=== PATIENT | female | born 1995 | race Caucasian/White ===

== ENCOUNTER 2017-04-24 12:05 | Observation (INO) | payer OTHER ==
[~2017-04-24] VITALS: Ht 167.6 cm; Wt 56.4 kg
[~2017-04-24 12:05] MED LIST: PRED10TA PO
[2017-04-24] MEDS ORDERED: DEXAMETHASONE SOD INJ 4 MG/ML VIAL IV STA (12:20)
[2017-04-24] MEDS ORDERED: DiphenhydrAMINE HCL 50 MG/ML VIAL IV STA (12:20)
[2017-04-24] MEDS ORDERED: CEFTRIAXONE SOD INJ 1 GM ADDVIAL IV STA (12:20)
[2017-04-24] MEDS ORDERED: ONDANSETRON INJ 2 MG/ML 2 ML VIAL IV STA (12:20)
[2017-04-24] MEDS ORDERED: MoRPHine SULFATE 4 MG/ML 1 ML CARP\\VIAL IV PRN ×2 (12:30→16:15)
--- NOTE | 2017-04-24 12:30 | EMERGENCY ROOM VISIT NOTE ---
History First contact with patient: 12:12 Chief Complaint: HEADACHE Stated Complaint: CP, NECK PAIN, SEVERE HEADACHE History of Present Illness The patient is a 21 year old female who presents to the Emergency Room with complaints of a severe headache. The patient states that last week, 6 days ago , she woke up with chest pain. The pain was worse to breathe and to move. 2 days ago, she went to see [facility] and was diagnosed with costochondritis. She is on prednisone. She states the chest pain has improved but for 2 days now, she has had a severe headache. She describes it as diffuse , bilateral and severe. It is the worst headache she has ever experienced. Even her eyes hurt and moving her eyes worsens or headache. Position change worsens her headache. She also has some neck pain and has some aching. She has no fever. No vomiting or nausea. No diarrhea. No urinary complaints. She is not concerned for . She has not been around anyone ill with similar symptoms. Review of Systems ROS: Please see HPI. At least 10 systems in total were reviewed and otherwise negative. Past Medical/Surgical History Medical Problems: (1) Viral meningitis No history of lung, heart or liver disease. She has no history of migraines. Family History Noncontributory Social History Smoking Status: Never Smoker Marital Status: single Occupation Status: student Current/Historical Medications Scheduled Prednisone (Prednisone), 0 PO UD Physical Exam Vital Signs Date Time Temp Pulse Resp B/P (MAP) Pulse Ox O2 Delivery O2 Flow Rate FiO2 04/24/17 14:59 80 16 111/77 100 Room Air 04/24/17 13:19 85 20 119/77 100 Room Air 04/24/17 12:08 36.9 82 20 123/84 99 Room Air Physical Exam GENERAL: Patient is in no acute distress. HEENT: No acute trauma, normocephalic atraumatic, mucous membranes moist, no nasal congestion, no scleral icterus. No throat erythema or exudate. NECK: No stridor, no adenopathy, no true meningismus but the neck was sore with flexion, trachea is midline. Tender to the right trapezius and right neck musculature. LUNGS: Clear to auscultation bilaterally, no wheeze, no rhonchi, breath sounds equal. HEART: Without murmurs gallops or rubs, regular rate and rhythm. ABDOMEN: Soft, nontender, bowel sounds positive, no hernias, no peritonitis. EXTREMITIES: No cyanosis or edema, full range of motion of all the joints without pain or difficulty, no signs for acute trauma. NEUROLOGIC: Oriented x 3, no acute motor or sensory deficits, no focal weakness. SKIN: No rash, no jaundice, no diaphoresis. Medical Decision & Procedures Laboratory Results 04/24/17 12:30 Red Blood Count 4.56, Mean Corpuscular Volume 88.2, Mean Corpuscular Hemoglobin 29.8, Mean Corpuscular Hemoglobin Concent 33.8, Mean Platelet Volume 9.3, Neutrophils (%) (Auto) 54.0, Lymphocytes (%) (Auto) 36.9, Monocytes (%) (Auto) 8.6, Eosinophils (%) (Auto) 0.1, Basophils (%) (Auto) 0.1, Neutrophils # (Auto) 5.49, Lymphocytes # (Auto) 3.75, Monocytes # (Auto) 0.87, Eosinophils # (Auto) 0.01, Basophils # (Auto) 0.01 04/24/17 12:30 Test 04/24/17 12:30 04/24/17 12:50 04/24/17 13:40 White Blood Count 10.16 K/uL (4.8-10.8) Red Blood Count 4.56 M/uL (4.2-5.4) Hemoglobin 13.6 g/dL (12.0-16.0) Hematocrit 40.2 % (37-47) Mean Corpuscular Volume 88.2 fL (80-100) Mean Corpuscular Hemoglobin 29.8 pg (25-34) Mean Corpuscular Hemoglobin Concent 33.8 g/dl (32-36) Platelet Count 277 K/uL (130-400) Mean Platelet Volume 9.3 fL (7.4-10.4) Neutrophils (%) (Auto) 54.0 % Lymphocytes (%) (Auto) 36.9 % Monocytes (%) (Auto) 8.6 % Eosinophils (%) (Auto) 0.1 % Basophils (%) (Auto) 0.1 % Neutrophils # (Auto) 5.49 K/uL (1.4-6.5) Lymphocytes # (Auto) 3.75 K/uL (1.2-3.4) Monocytes # (Auto) 0.87 K/uL (0.11-0.59) Eosinophils # (Auto) 0.01 K/uL (0-0.5) Basophils # (Auto) 0.01 K/uL (0-0.2) RDW Standard Deviation 40.5 fL (36.4-46.3) RDW Coefficient of Variation 12.7 % (11.5-14.5) Immature Granulocyte % (Auto) 0.3 % Immature Granulocyte # (Auto) 0.03 K/uL (0.00-0.02) Anion Gap 8.0 mmol/L (3-11) Est Creatinine Clear Calc Drug Dose 88.0 ml/min Estimated GFR () 104.6 Estimated GFR (Non- 90.3 BUN/Creatinine Ratio 12.6 (10-20) Calcium Level 9.3 mg/dl (8.5-10.1) Total Bilirubin 0.3 mg/dl (0.2-1) Aspartate Amino Transf (AST/SGOT) 20 U/L (15-37) Alanine Aminotransferase (ALT/SGPT) 25 U/L (12-78) Alkaline Phosphatase 88 U/L (45-117) Troponin I < 0.015 ng/ml (0-0.045) Total Protein 8.0 gm/dl (6.4-8.2) Albumin 3.7 gm/dl (3.4-5.0) Globulin 4.3 gm/dl (2.5-4.0) Albumin/Globulin Ratio 0.9 (0.9-2) Human Chorionic Gonadotropin, Qual NEG (NEG) Lyme Disease IgG Antibody NEG (NEG) Lyme Disease IgM Antibody NEG (NEG) Urine Color YELLOW Urine Appearance CLEAR (CLEAR) Urine pH 7.5 (4.5-7.5) Urine Specific [place] 1.014 (1.000-1.030) Urine Protein NEG (NEG) Urine Glucose (UA) NEG (NEG) Urine Ketones NEG (NEG) Urine Occult Blood 2+ (NEG) Urine Nitrite NEG (NEG) Urine Bilirubin NEG (NEG) Urine Urobilinogen NEG (NEG) Urine Leukocyte Esterase NEG (NEG) Urine WBC (Auto) 1-5 /hpf (0-5) Urine RBC (Auto) 0-4 /hpf (0-4) Urine Hyaline Casts (Auto) 1-5 /lpf (0-5) Urine Epithelial Cells (Auto) >30 /lpf (0-5) Urine Bacteria (Auto) NEG (NEG) CSF Color COLORLESS CSF Appearance CLEAR CSF WBC 57 /uL (0-5) CSF RBC 33 /uL (0) CSF Polynuclear WBCs 81.0 % CSF Mononuclear WBCs 19.0 % CSF Xanthrochromic NO XANTHOCHROMIA CSF Cell Count Tube # 1 CSF Polynuclear WBCs (%) % CSF Chemistry Tube # 2 CSF Glucose 58 mg/dl (40-70) CSF Total Protein 34.6 mg/dl (15.0-45.0) Laboratory results reviewed by me. Medications Administered Medications (Trade) Dose Ordered Sig/Pennie Route Start Time Stop Time Status Last Admin Dose Admin Ondansetron HCl (Zofran Inj) 4 mg NOW STAT IV 04/24/17 12:20 04/24/17 12:24 DC 04/24/17 12:47 4 MG Morphine Sulfate (MoRPHine SULFATE INJ) 4 mg Q15M PRN IV 04/24/17 12:30 04/24/17 18:15 DC 04/24/17 12:48 4 MG Diphenhydramine HCl (Benadryl Inj) 25 mg NOW STAT IV 04/24/17 12:20 04/24/17 12:24 DC 04/24/17 12:49 25 MG Dexamethasone Sodium Phosphate (Decadron Inj) 10 mg NOW STAT IV 04/24/17 12:20 04/24/17 12:24 DC 04/24/17 12:46 10 MG Ceftriaxone Sodium (Rocephin Inj) 2 gm NOW STAT IV 04/24/17 12:20 04/24/17 12:24 DC 04/24/17 12:49 2 GM Sodium Chloride 500 ml @ 999 mls/hr Q31M STAT IV 04/24/17 13:45 04/24/17 14:15 DC 04/24/17 13:54 999 MLS/HR Acetaminophen (Tylenol Tab) 650 mg Q4H PRN PO 04/24/17 16:00 05/24/17 15:59 04/24/17 16:26 650 MG Procedure Lumbar Puncture Indication: Headache, neck pain. Verbal consent was obtained after the risks and benefits were explained, including but not limited to headache, bleeding/clotting, scarring, infection, pain, and bone/joint/nerve damage. At this time, the risks of the procedure are less than the risks of NOT performing the procedure. A time out was taken and the correct patient and site identified. The patient was placed in the seated position and the back was prepped with betadine and draped in the standard fashion. The appropriate intervertebral space was identified, anesthetized locally with 1% lidocaine without epinephrine, and the spinal needle was inserted through the skin with the bevel parallel to the dural fibers. The needle was carefully advanced into the lumbar cistern and 4 tubes of clear CSF was obtained. The stylet was replaced and the needle was removed. A bandaid was placed and the patient was placed in the supine position. The patient tolerated the procedure well and there were no complications. ED Course 1205: The patient was evaluated in room C10. A complete history and physical exam was performed. 1220: Ordered Rocephin Inj 2 gm IV, Decadron Inj 10 mg IV, Benadryl Inj 25 mg IV , Zofran Inj 4 mg IV. 1230: Ordered Morphine Sulfate 4 mg IV. 1326: I conducted the lumbar puncture. See the procedure note for details. 1520: Upon reexamination the patient is resting comfortably. I discussed results and treatment plan with the patient. She verbalizes agreement and understanding. The patient will be evaluated for further management. Medical Decision Differential diagnosis includes viral or bacterial meningitis, intracranial bleeding, generalized viral illness, migraine headache, dehydration, electrolyte imbalance, pneumonia and UTI. There is no leukocytosis or concerning anemia. No significant electrolyte abnormality, kidney failure or hepatitis. testing is negative. Urinalysis does not show evidence for infection. Brain CT shows no acute bleed or mass effect. Chest film does not show pneumonia, mediastinal widening or pneumothorax. Lyme disease testing was negative. On exam, the patient was not febrile. She has some neck soreness with testing but no true meningismus. Patient received IV saline, IV Benadryl, IV Decadron, IV morphine, IV Zofran and IV ceftriaxone. The ceftriaxone was given for antibiotic coverage. Because of concerns for meningitis, a lumbar puncture was performed. There were no complications--the CSF fluid does suggest meningitis, likely a viral meningitis. Given the findings, a hospital stay was felt warranted. I spoke to the patient and case management. I talked to the patient's family. The on-call hospitalist was consulted. The patient is currently resting comfortably. Medication Reconcilliation Current Medication List: was personally reviewed by fl Blood Pressure Screening Patient's blood pressure: Normal blood pressure Blood pressure disposition: Did not require urgent referral Consults Time Called: 1514 Consulting Physician: Rae OMALLEY Returned Call: 1520 Discussed the patient's case. The patient will be evaluated for further management. Impression Primary Impression: Meningitis Departure Information Dispostion Being Evaluated By Hospitalist Referrals No Doctor, Assigned (PCP) Patient Instructions [facility]
[2017-04-24 12:48] LABS: BASO % 0.1 %; BASO ABS # 0.01 K/uL (0-0.2); COMPLETE YES; EOS % 0.1 %; HEMATOCRIT 40.2 % (37-47); IG% 0.3 %; LYMPH % 36.9 %; LYMPH ABS # 3.75 K/uL (1.2-3.4); MEAN CELL VOLUME 88.2 fL (80-100); MEAN CORPUSCULAR HEMOGLOBIN 29.8 pg (25-34); MEAN CORPUSCULAR HGB CONC 33.8 g/dl (32-36); MEAN PLATELET VOLUME 9.3 fL (7.4-10.4); MONO % 8.6 %; PLATELET COUNT 277 K/uL (130-400); RED BLOOD COUNT 4.56 M/uL (4.2-5.4); WHITE BLOOD COUNT 10.16 K/uL (4.8-10.8)
[2017-04-24 12:55] LABS: BUN/CREATININE RATIO 12.6 (10-20); CALCIUM 9.3 mg/dl (8.5-10.1); CREATININE 0.92 mg/dl (0.60-1.20); POTASSIUM 3.1 mmol/L (3.5-5.1)
[2017-04-24 12:58] LABS: ALB/GLOB RATIO 0.9 (0.9-2)
[2017-04-24 13:05] LABS: PREG INTERNAL NEGATIVE QC NEG CLEAR BACKGROUND; PREG INTERNAL POSITIVE QC POS CONTROL LINE
[2017-04-24 13:07] LABS: URINE APPEARANCE CLEAR (CLEAR); URINE BILIRUBIN NEG (NEG); URINE COLOR YELLOW; URINE EPITHELIAL CELL AUTO >30 /lpf (0-5); URINE NITRITE NEG (NEG); URINE PH 7.5 (4.5-7.5); URINE SPECIFIC GRAVITY 1.014 (1.000-1.030); UROBILINOGEN NEG (NEG); ZZUR CULT IF INDIC CLEAN CATCH NO
[2017-04-24 13:10] LABS: MANUAL MICROSCOPIC REQUIRED? NO; REVIEW REQ? NO
--- NOTE | 2017-04-24 13:14 | DIAGNOSTIC IMAGING REPORT ---
HEAD CT NONCONTRAST CT DOSE: 537.48 mGy.cm HISTORY: Headache. Evaluate for hemorrhage or pathology TECHNIQUE: Multiaxial CT images of the head were performed without the use of intravenous contrast. Automated exposure control was utilized for this study. A dose lowering technique was utilized adhering to the principles of ALARA. Comparison: None. Findings: Partially visualized small retention cyst within the left maxillary sinus. Remaining paranasal sinuses and mastoid air cells are clear. The calvarium and skull base are intact. The ventricles and sulci are within normal limits. There is no mass, hematoma, midline shift, or acute infarct. Impression: No acute intracranial abnormality. Electronically signed by: Lucho Longoria M.D. 04/24/2017 1:12 PM Dictated Date/Time: 04/24/2017 1:09 PM
[2017-04-24] MEDS ORDERED: XYLOCAINE 1%/SOD BICARB 20 ML VIAL INFIL ONE (13:18)
--- NOTE | 2017-04-24 13:31 | DIAGNOSTIC IMAGING REPORT ---
CHEST ONE VIEW PORTABLE CLINICAL HISTORY: Chest pain. COMPARISON STUDY: No previous studies for comparison. FINDINGS: Lung volumes are normal. No pneumothorax or pleural effusion is present. Pulmonary vascularity is normal. Cardiomediastinal silhouette is normal. IMPRESSION: No acute cardiopulmonary findings. Electronically signed by: Kaushal Galvan M.D. 04/24/2017 1:29 PM Dictated Date/Time: 04/24/2017 1:29 PM
[2017-04-24] MEDS ORDERED: SODIUM CHLORIDE 0.9% 500ML 500 ML IV STA (13:45)
[2017-04-24 13:50] LABS: LYME DISEASE AB IGG NEG (NEG); LYME DISEASE AB IGM NEG (NEG)
[2017-04-24 14:15] LABS: CSF CHEMISTRY TUBE # 2
[2017-04-24 14:30] LABS: CSF TOTAL PROTEIN 34.6 mg/dl (15.0-45.0)
[2017-04-24 15:06] LABS: CSF APPEARANCE CLEAR; CSF COLOR COLORLESS; CSF XANTHOCHROMIC NO XANTHOCHROMIA
[2017-04-24 15:07] LABS: CSF APPEARANCE CLEAR; CSF COLOR COLORLESS; CSF XANTHOCHROMIC NO XANTHOCHROMIA
--- NOTE | 2017-04-24 15:40 | History and Physical ---
History & Physical Date & Time of Service: Apr 24, 2017 at 15:34 Chief Complaint: Cp, Neck Pain, Severe Headache Primary Care Physician: No Doctor, Assigned History of Present Illness Ms. Nelson presents for headache which she says is the worst in her life. She had chest pain a week ago which was diagnosed as costochondritis at [facility] and for which she was given prednisone and has improved. She then developed a headache yesterday, tylenol helped a little but became unbearable by night. She was having tunnel vision when going from laying to standing. The headache was throbbing in nature around her eyes. No history of migraine or headaches. Neck and upper back pain started yesterday along with the headache. No fever, some chills and body aches, no nausea or vomiting, no upper respiratory symptoms. She has been short of breath but mostly due to the pain in her chest. Right now her headache is better but not her neck pain and it feels more painful laying down on it. She has a sharp shooting pain when trying to get chin to chest. She has not been doing any new exercises or strained her neck in the past few days. She has no other significant medical history. Social History Smoking Status: Never Smoker Smokeless Tobacco Use: No Alcohol Use: socially Marital Status: single Housing status: lives with friends Occupational Status: student Allergies Coded Allergies: No Known Allergies (Unverified , 04/24/17) Home Medications Scheduled Prednisone (Prednisone), 0 PO UD Review of Systems Constitutional: + chills, No fever Respiratory: + shortness of breath, No cough Cardiovascular: + chest pain Abdomen: No pain, No nausea, No vomiting Physical Exam Vital Signs Date Time Temp Pulse Resp B/P (MAP) Pulse Ox O2 Delivery O2 Flow Rate FiO2 04/24/17 14:59 80 16 111/77 100 Room Air 04/24/17 13:19 85 20 119/77 100 Room Air 04/24/17 12:08 36.9 82 20 123/84 99 Room Air General: no distress Eyes: normal inspection, PERLL Respiratory: chest non tender, clear to auscultation, normal breath sounds, no respiratory distress, no accessory muscle use Cardiac: regular rate and rhythm, no rub or gallop, no murmur, no edema, no jvd GI/: active bowel sounds, no abd pain or tenderness, soft, non distended Extremities: normal range of motion, normal strength, non tender, unable to go through full range of motion chin to chest but can put chin to shoulders bilaterally Neuro/Psych: alert and oriented x 3, normal mood and affect Skin: normal color, dry Diagnostics Laboratory Results Results Past 24 Hours Test 04/24/17 12:30 04/24/17 12:50 04/24/17 13:40 Range/Units White Blood Count 10.16 4.8-10.8 K/uL Red Blood Count 4.56 4.2-5.4 M/uL Hemoglobin 13.6 12.0-16.0 g/dL Hematocrit 40.2 37-47 % Mean Corpuscular Volume 88.2 80-100 fL Mean Corpuscular Hemoglobin 29.8 25-34 pg Mean Corpuscular Hemoglobin Concent 33.8 32-36 g/dl Platelet Count 277 130-400 K/uL Mean Platelet Volume 9.3 7.4-10.4 fL Neutrophils (%) (Auto) 54.0 % Lymphocytes (%) (Auto) 36.9 % Monocytes (%) (Auto) 8.6 % Eosinophils (%) (Auto) 0.1 % Basophils (%) (Auto) 0.1 % Neutrophils # (Auto) 5.49 1.4-6.5 K/uL Lymphocytes # (Auto) 3.75 1.2-3.4 K/uL Monocytes # (Auto) 0.87 0.11-0.59 K/uL Eosinophils # (Auto) 0.01 0-0.5 K/uL Basophils # (Auto) 0.01 0-0.2 K/uL RDW Standard Deviation 40.5 36.4-46.3 fL RDW Coefficient of Variation 12.7 11.5-14.5 % Immature Granulocyte % (Auto) 0.3 % Immature Granulocyte # (Auto) 0.03 0.00-0.02 K/uL Sodium Level 141 136-145 mmol/L Potassium Level 3.1 3.5-5.1 mmol/L Chloride Level 105 98-107 mmol/L Carbon Dioxide Level 28 21-32 mmol/L Anion Gap 8.0 3-11 mmol/L Blood Urea Nitrogen 12 7-18 mg/dl Creatinine 0.92 0.60-1.20 mg/dl Est Creatinine Clear Calc Drug Dose 88.0 ml/min Estimated GFR () 104.6 Estimated GFR (Non- 90.3 BUN/Creatinine Ratio 12.6 10-20 Random Glucose 87 70-99 mg/dl Calcium Level 9.3 8.5-10.1 mg/dl Total Bilirubin 0.3 0.2-1 mg/dl Aspartate Amino Transf (AST/SGOT) 20 15-37 U/L Alanine Aminotransferase (ALT/SGPT) 25 12-78 U/L Alkaline Phosphatase 88 45-117 U/L Troponin I < 0.015 0-0.045 ng/ml Total Protein 8.0 6.4-8.2 gm/dl Albumin 3.7 3.4-5.0 gm/dl Globulin 4.3 2.5-4.0 gm/dl Albumin/Globulin Ratio 0.9 0.9-2 Human Chorionic Gonadotropin, Qual NEG NEG Lyme Disease IgG Antibody NEG NEG Lyme Disease IgM Antibody NEG NEG Urine Color YELLOW Urine Appearance CLEAR CLEAR Urine pH 7.5 4.5-7.5 Urine Specific [place] 1.014 1.000-1.030 Urine Protein NEG NEG Urine Glucose (UA) NEG NEG Urine Ketones NEG NEG Urine Occult Blood 2+ NEG Urine Nitrite NEG NEG Urine Bilirubin NEG NEG Urine Urobilinogen NEG NEG Urine Leukocyte Esterase NEG NEG Urine WBC (Auto) 1-5 0-5 /hpf Urine RBC (Auto) 0-4 0-4 /hpf Urine Hyaline Casts (Auto) 1-5 0-5 /lpf Urine Epithelial Cells (Auto) >30 0-5 /lpf Urine Bacteria (Auto) NEG NEG CSF Color COLORLESS CSF Appearance CLEAR CSF WBC 57 0-5 /uL CSF RBC 33 0 /uL CSF Xanthrochromic NO XANTHOCHROMIA CSF Cell Count Tube # 1 CSF Chemistry Tube # 2 CSF Glucose 58 40-70 mg/dl CSF Total Protein 34.6 15.0-45.0 mg/dl Microbiology Results 04/24/17 Gram Stain - Final, Resulted 04/24/17 CSF Culture, Resulted Pending Impression Assessment and Plan Ms. Nelson is a 21 year old woman here for likely viral meningitis. Her presentation is not consistent with bacterial and her LP showed a small white count with no bacteria. R/o viral meningitis - admit obs med/surg - keep on droplet precautions until 24 hours of antibiotics administered - ceftriaxone, vanco iv, decadron, toradol, morphine - IVF Hypokalemia - NSS 20K - po replacement Full code DVT prophylaxis - scds OFFICE ASSISTANT Physician Supervision Note: I interviewed and examined the patient. Discussed with Rae Cerrato OFFICE ASSISTANT and agree with findings and plan as documented in the note. Any exceptions or clarifications are listed here: None Patient presents the worst headache of her life, evaluation showed a negative CT a lumbar puncture was performed with some white blood cells however normal glucose no significant red cells will bring patient what facility for evaluation of possible meningitis although clinically the impression is that this is viral meningitis. She however does not have any preceding prodromal upper respiratory infections and this may well just be an atypical headache for this patient Evaluation finds her awake alert and oriented she is with her mother the bedside she is only minimal base of her neck pain more on the right although examination on the left shows morbid noddy space she can bend her chin to her chest she has no meningeal signs with straight leg raising the remainder of HEENT exam is unremarkable including negative throat normal TMs. The patient be kept overnight for evaluation of possible meningitis will begin treatment for bacterial meningitis although clinically this likely may favor an alternative diagnosis. Documented By: Pilo Conway Advanced Directives Existing Advance Directive: No Existing Living Will: No Existing Power of Ships Or Barges Loader: No Existing Health Care Proxy: No Resuscitation Status FULL RESUSCITATION VTE Prophylaxis VTE Risk Assessment Done? Y/N: Yes Risk Level: Low Given or contraindicated: SCD's Social Service Consult None Apply
[2017-04-24] MEDS ORDERED: ONDANSETRON INJ 2 MG/ML 2 ML VIAL IV PRN (16:00)
[2017-04-24] MEDS ORDERED: ACETAMINOPHEN 325 MG TAB PO PRN (16:00)
[2017-04-24] MEDS ORDERED: MoRPHine SULFATE 2 MG/ML CARP IV PRN (16:15)
[2017-04-24] MEDS ORDERED: KETOROLAC TROMETHAMINE 30 MG/ML VIAL IV PRN (16:15)
[2017-04-24] MEDS ORDERED: POTASSIUM CHLORIDE 10 MEQ TABCR PO ONE (16:15)
[2017-04-24] MEDS ORDERED: VANCOMYCIN INJ 1,500 MG in SODIUM CHLORIDE 0.9% 500ML 500 ML IV ONE (16:30)
[2017-04-24] MEDS ORDERED: VANCOMYCIN CONSULT ACTIVE PRN (16:45)
[2017-04-24] MEDS ORDERED: IV FLUIDS COMPLETED PRN (16:45)
[2017-04-24 17:56] VITALS: BP 119/72; PULSE 80; TEMP 37.5; O2SAT 99
[2017-04-24] MEDS ORDERED: MAGNESIUM SULFATE 1GM / D5W 1 GM in PREMIXED IN D5W 100 ML IV ONE (18:00)
[2017-04-24] MEDS: NSS + 20MEQ KCL 1000ML 1,000 ML IV SCH ×2 (18:24→23:42)
[2017-04-24] MEDS: DEXAMETHASONE 4 MG TAB PO SCH ×2 (18:50→23:42)
[2017-04-24 18:57] VITALS: BP 119/72; PULSE 80; TEMP 37.5; O2SAT 99; Ht 167.6 cm; Wt 56.4 kg
--- NOTE | 2017-04-24 19:33 | Pharmacy Progress Note ---
Pharmacy Antibiotic Consult Date of Service: Apr 24, 2017. Pharmacy Dosing Scope Pharmacy is consulted to initiate vancomycin IV dosing therapy, order appropriate labs and adjust drug dose/frequency. Subjective The patient is a 21 year old female admitted on Apr 24, 2017 at 16:09. Objective Height (Feet): 5 Height (Inches): 6.00 Weight (Kilograms): 56.400 Lab Results (24hrs): Test 04/24/17 12:30 04/24/17 12:50 04/24/17 13:40 White Blood Count 10.16 K/uL (4.8-10.8) Red Blood Count 4.56 M/uL (4.2-5.4) Hemoglobin 13.6 g/dL (12.0-16.0) Hematocrit 40.2 % (37-47) Mean Corpuscular Volume 88.2 fL (80-100) Mean Corpuscular Hemoglobin 29.8 pg (25-34) Mean Corpuscular Hemoglobin Concent 33.8 g/dl (32-36) Platelet Count 277 K/uL (130-400) Mean Platelet Volume 9.3 fL (7.4-10.4) Neutrophils (%) (Auto) 54.0 % Lymphocytes (%) (Auto) 36.9 % Monocytes (%) (Auto) 8.6 % Eosinophils (%) (Auto) 0.1 % Basophils (%) (Auto) 0.1 % Neutrophils # (Auto) 5.49 K/uL (1.4-6.5) Lymphocytes # (Auto) 3.75 K/uL (1.2-3.4) Monocytes # (Auto) 0.87 K/uL (0.11-0.59) Eosinophils # (Auto) 0.01 K/uL (0-0.5) Basophils # (Auto) 0.01 K/uL (0-0.2) RDW Standard Deviation 40.5 fL (36.4-46.3) RDW Coefficient of Variation 12.7 % (11.5-14.5) Immature Granulocyte % (Auto) 0.3 % Immature Granulocyte # (Auto) 0.03 K/uL (0.00-0.02) Sodium Level 141 mmol/L (136-145) Potassium Level 3.1 mmol/L (3.5-5.1) Chloride Level 105 mmol/L (98-107) Carbon Dioxide Level 28 mmol/L (21-32) Anion Gap 8.0 mmol/L (3-11) Blood Urea Nitrogen 12 mg/dl (7-18) Creatinine 0.92 mg/dl (0.60-1.20) Est Creatinine Clear Calc Drug Dose 88.0 ml/min Estimated GFR () 104.6 Estimated GFR (Non- 90.3 BUN/Creatinine Ratio 12.6 (10-20) Random Glucose 87 mg/dl (70-99) Calcium Level 9.3 mg/dl (8.5-10.1) Total Bilirubin 0.3 mg/dl (0.2-1) Aspartate Amino Transf (AST/SGOT) 20 U/L (15-37) Alanine Aminotransferase (ALT/SGPT) 25 U/L (12-78) Alkaline Phosphatase 88 U/L (45-117) Troponin I < 0.015 ng/ml (0-0.045) Total Protein 8.0 gm/dl (6.4-8.2) Albumin 3.7 gm/dl (3.4-5.0) Globulin 4.3 gm/dl (2.5-4.0) Albumin/Globulin Ratio 0.9 (0.9-2) Human Chorionic Gonadotropin, Qual NEG (NEG) Lyme Disease IgG Antibody NEG (NEG) Lyme Disease IgM Antibody NEG (NEG) Urine Color YELLOW Urine Appearance CLEAR (CLEAR) Urine pH 7.5 (4.5-7.5) Urine Specific [place] 1.014 (1.000-1.030) Urine Protein NEG (NEG) Urine Glucose (UA) NEG (NEG) Urine Ketones NEG (NEG) Urine Occult Blood 2+ (NEG) Urine Nitrite NEG (NEG) Urine Bilirubin NEG (NEG) Urine Urobilinogen NEG (NEG) Urine Leukocyte Esterase NEG (NEG) Urine WBC (Auto) 1-5 /hpf (0-5) Urine RBC (Auto) 0-4 /hpf (0-4) Urine Hyaline Casts (Auto) 1-5 /lpf (0-5) Urine Epithelial Cells (Auto) >30 /lpf (0-5) Urine Bacteria (Auto) NEG (NEG) CSF Color COLORLESS CSF Appearance CLEAR CSF WBC 57 /uL (0-5) CSF RBC 33 /uL (0) CSF Polynuclear WBCs 81.0 % CSF Mononuclear WBCs 19.0 % CSF Xanthrochromic NO XANTHOCHROMIA CSF Cell Count Tube # 1 CSF Polynuclear WBCs (%) % CSF Chemistry Tube # 2 CSF Glucose 58 mg/dl (40-70) CSF Total Protein 34.6 mg/dl (15.0-45.0) Assessment & Plan Patient started on vancomycin and rocephin (not consult) for possible meningitis. CSF culture pending. Spoke with provider about starting antiviral therapy in addition to antibiotics and will hold for now and follow. Vancomycin: * LD of vancomycin 1500 mg (~26 mg/kg) x 1 in ED * Will start MD of vancomycin 750 mg (~13 mg/kg) iv q 8 hrs to achieve an estimated trough ~15-20 mcg/ml * Estimated kinetics: t1/2~0.077 hr-1, ke~9 hr, CrCl 88 ml/min * Will plan to obtain a trough prior to the 1600 dose on 04/25 if abx are to be continued Pharmacy will continue to follow and will adjust dose/frequency as necessary. Thank you
[2017-04-24] MEDS ORDERED: DiphenhydrAMINE INJ 25 MG in SYRINGE 0 ML IV STA (19:35)
[2017-04-24 19:38] VITALS: TEMP 36.9
[2017-04-24] MEDS ORDERED: DiphenhydrAMINE HCL 50 MG/ML VIAL IV ONE (19:45)
[2017-04-24] MEDS ORDERED: INFLUENZA VIRUS QUAD VACCINE 0.5 ML SYR IM. ONE (21:15)
[2017-04-24] MEDS ORDERED: INFLUENZA ADMINISTRATION CHARGE ONE (21:15)
[2017-04-24] MEDS: CEFTRIAXONE SOD INJ 2 GM in DEXTROSE 5% ADD-VANTAGE 50ML 50 ML IV SCH (22:38)
[2017-04-24 23:55] VITALS: BP 119/72; PULSE 63; TEMP 36.6; O2SAT 99
[2017-04-25] MEDS: VANCOMYCIN INJ 750 MG in SODIUM CHLORIDE 0.9% 250ML 250 ML IV SCH ×2 (00:02→08:09)
[2017-04-25] MEDS: DEXAMETHASONE 4 MG TAB PO SCH ×2 (06:06→11:44)
[2017-04-25] MEDS: NSS + 20MEQ KCL 1000ML 1,000 ML IV SCH (08:09)
[2017-04-25 08:30] LABS: BASO % 0.1 %; BASO ABS # 0.01 K/uL (0-0.2); COMPLETE YES; HEMATOCRIT 36.5 % (37-47); IG% 0.3 %; LYMPH % 16.7 %; LYMPH ABS # 1.91 K/uL (1.2-3.4); MEAN CELL VOLUME 88.2 fL (80-100); MEAN CORPUSCULAR HEMOGLOBIN 29.5 pg (25-34); MEAN CORPUSCULAR HGB CONC 33.4 g/dl (32-36); MEAN PLATELET VOLUME 9.3 fL (7.4-10.4); MONO % 4.1 %; NEUT % 78.8 %; PLATELET COUNT 243 K/uL (130-400); RED BLOOD COUNT 4.14 M/uL (4.2-5.4); WHITE BLOOD COUNT 11.46 K/uL (4.8-10.8)
[2017-04-25 09:05] LABS: BUN/CREATININE RATIO 12.2 (10-20); CALCIUM 8.5 mg/dl (8.5-10.1); CREATININE 0.75 mg/dl (0.60-1.20); MAGNESIUM 2.1 mg/dl (1.8-2.4); POTASSIUM 4.2 mmol/L (3.5-5.1)
[2017-04-25 09:09] VITALS: BP 108/61; PULSE 71; TEMP 36.8; O2SAT 100
[2017-04-25] MEDS: CEFTRIAXONE SOD INJ 2 GM in DEXTROSE 5% ADD-VANTAGE 50ML 50 ML IV SCH (10:39)
--- NOTE | 2017-04-25 13:26 | Medical Student: [facility] ---
Med Student History & Physical Date & Time of Service: Apr 25, 2017 at 13:04 Chief Complaint: Viral Meningitis Primary Care Physician: No Doctor, Assigned History of Present Illness Source: patient, parent Noemi is a 21-year-old woman who presented the ED yesterday (04/24) afternoon with a severe diffuse headache. She also had/upper shoulder pain as well as some body aches and chills. Her headache was worse with positional changes, light, and standing up quickly. These symptoms began two days ago, and the headache was refractory to ibuprofen and Tylenol, which is what prompted her mother (a former RN) to tell her to come to the ED. Six days ago Noemi was seen at [facility] on campus at [employer] for chest pain that was deemed to be costochondritis, and she was started on prednisone for that. She states her chest pain is getting better. Noemi's mother also said that Noemi had a case of Strep throat three weeks ago that she was given antibiotics for. An LP was done in the ED which revealed elevated WBC count in CSF but was otherwise normal. Cultures are still pending. Head CT showed no acute processes or masses. CXR was unremarkable. She was given IV saline, Benadryl, morphine, Decadron, Zofran, and ceftriaxone/vancomycin to cover for possible bacterial processes. Today she is feeling much better. Her headache is gone, and her neck pain is much improved, which slight stiffness but no shooting pain like she had in the ED. SHe has not received an morphine since she was in the ED. She states that she has an exam tonight at 7 PM and would like to be back for that. Denies nausea, vomiting, urinary symptoms, diarrhea, sick contacts. Past Medical/Surgical History Medical Problems: (1) Meningitis Status: Acute Social History Smoking Status: Never Smoker Smokeless Tobacco Use: No Alcohol Use: socially Marital Status: single Housing status: lives with friends Occupational Status: student Allergies Coded Allergies: No Known Allergies (Unverified , 04/24/17) Medications Prednisone (Prednisone), 0 PO UD Review of Systems Constitutional: + chills (Yesterday; has resolved), No fever, No sweats Eyes: + worsening of vision (Resolved), + eye pain (Resolved) ENT: No hearing loss, No sore throat Respiratory: No cough, No sputum, No wheezing Cardiovascular: + chest pain (Treated for costochodritis at [facility]), No edema Abdomen: No pain, No nausea, No vomiting Musculoskeletal: No swelling, No calf pain Genitourinary - Female: No dysuria, No urinary urgency Neurologic: No memory loss, No numbness/tingling, No vertigo Hematologic / Lymphatic: No abnormal bleeding/bruising Integumentary: No rash Physical Exam Vital Signs (24 Hours) Date Time Temp Pulse Resp B/P (MAP) Pulse Ox O2 Delivery O2 Flow Rate FiO2 04/25/17 09:09 36.8 71 18 108/61 (77) 100 Room Air 04/25/17 08:45 Room Air 04/25/17 00:00 Room Air 04/24/17 23:55 36.6 63 18 119/72 (88) 99 Room Air 04/24/17 19:38 36.9 04/24/17 18:57 37.5 80 15 119/72 99 Room Air 04/24/17 17:56 37.5 80 15 119/72 (88) 99 04/24/17 17:18 37.4 84 18 115/69 99 Room Air 04/24/17 16:19 37.4 94 18 117/72 100 Room Air 04/24/17 14:59 80 16 111/77 100 Room Air 04/24/17 13:19 85 20 119/77 100 Room Air General Appearance: WD/WN, no apparent distress Head: normocephalic, atraumatic Eyes: normal inspection, EOMI Neck: no adenopathy, + pertinent finding (mild stiffness with [id number]) Respiratory/Chest: chest non-tender, lungs clear, normal breath sounds Cardiovascular: regular rate, rhythm, no edema Abdomen/GI: normal bowel sounds, non tender, soft Back: normal inspection, normal range of motion Extremities/Musculoskelatal: no pedal edema, normal range of motion 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, no motor/sensory deficits, alert, oriented x 3 Skin: normal color, warm/dry Diagnostics Laboratory Results Results Past 24 Hours Test 04/24/17 13:40 04/25/17 08:17 Range/Units CSF Color COLORLESS CSF Appearance CLEAR CSF WBC 57 0-5 /uL CSF RBC 33 0 /uL CSF Polynuclear WBCs 81.0 % CSF Mononuclear WBCs 19.0 % CSF Xanthrochromic NO XANTHOCHROMIA CSF Cell Count Tube # 1 CSF Polynuclear WBCs (%) % CSF Chemistry Tube # 2 CSF Glucose 58 40-70 mg/dl CSF Total Protein 34.6 15.0-45.0 mg/dl White Blood Count 11.46 4.8-10.8 K/uL Red Blood Count 4.14 4.2-5.4 M/uL Hemoglobin 12.2 12.0-16.0 g/dL Hematocrit 36.5 37-47 % Mean Corpuscular Volume 88.2 80-100 fL Mean Corpuscular Hemoglobin 29.5 25-34 pg Mean Corpuscular Hemoglobin Concent 33.4 32-36 g/dl Platelet Count 243 130-400 K/uL Mean Platelet Volume 9.3 7.4-10.4 fL Neutrophils (%) (Auto) 78.8 % Lymphocytes (%) (Auto) 16.7 % Monocytes (%) (Auto) 4.1 % Eosinophils (%) (Auto) 0.0 % Basophils (%) (Auto) 0.1 % Neutrophils # (Auto) 9.04 1.4-6.5 K/uL Lymphocytes # (Auto) 1.91 1.2-3.4 K/uL Monocytes # (Auto) 0.47 0.11-0.59 K/uL Eosinophils # (Auto) 0.00 0-0.5 K/uL Basophils # (Auto) 0.01 0-0.2 K/uL RDW Standard Deviation 40.1 36.4-46.3 fL RDW Coefficient of Variation 12.4 11.5-14.5 % Immature Granulocyte % (Auto) 0.3 % Immature Granulocyte # (Auto) 0.03 0.00-0.02 K/uL Sodium Level 138 136-145 mmol/L Potassium Level 4.2 3.5-5.1 mmol/L Chloride Level 107 98-107 mmol/L Carbon Dioxide Level 22 21-32 mmol/L Anion Gap 9.0 3-11 mmol/L Blood Urea Nitrogen 9 7-18 mg/dl Creatinine 0.75 0.60-1.20 mg/dl Est Creatinine Clear Calc Drug Dose 107.4 ml/min Estimated GFR () 133.9 Estimated GFR (Non- 115.6 BUN/Creatinine Ratio 12.2 10-20 Random Glucose 123 70-99 mg/dl Calcium Level 8.5 8.5-10.1 mg/dl Magnesium Level 2.1 1.8-2.4 mg/dl Microbiology Results 04/24/17 Gram Stain - Final, Resulted 04/24/17 CSF Culture, Resulted Pending Impression Assessment and Plan Assessment/Plan: Noemi is a 21-year-old who presented to the ED yesterday (04/24) with a severe headache and neck pain. DDx includes viral meningitis, bacterial meningitis, migraine headache, intracranial process/bleed/mass, dehydration, other infection. Primary diagnosis: meningitis -This is like viral based on her CSF analysis (mildly increased WBC with normal color, glucose, and opening pressure) -Culture is pending -Continue IV ceftriaxone until confirmed -Toradol for pain control -CT, CXR, UA all negative/WNL -Labs - no , no anemia, no Lyme disease; only mild hypokalemia ( replaced in ED) Secondary: chest pain (not new) -Continue outpatient course of prednisone as directed -Return to [facility] if not improved or if worse Level of Care Med/Surg Advanced Directives Existing Advance Directive: No Existing Living Will: No Existing Power of Surgical Scrub Technologist: No Existing Health Care Proxy: No Resuscitation Status FULL RESUSCITATION
[2017-04-25 14:51] VITALS: BP 98/57; PULSE 66; TEMP 36.7; O2SAT 99
[2017-04-25] MEDS ORDERED: VANCOMYCIN TROUGH ONE (15:30)
[2017-04-25] MEDS ORDERED: IBUP-1428 PO (15:38)
--- NOTE | 2017-04-25 15:44 | Discharge Instructions ---
Discharge Instructions Date of Service Apr 25, 2017. Admission Reason for Admission: Viral Meningitis Discharge Discharge Diagnosis / Problem: viral meningitis Discharge Goals Goal(s): Decrease discomfort, Diagnostic testing, Therapeutic intervention Activity Recommendations Activity Limitations: resume your previous activity . Instructions / Follow-Up Instructions / Follow-Up viral meningitis -these are typically caused by the same viruses that cause a typical upper respiratory infection, but occasionally the virus will end up infecting the lining surrounding brain, causing the headache and inflammation that you felt -fortunately your spinal tap and the subsequent culture on your spinal fluid show findings entirely consistent with a viral meningitis, and not at all consistent with bacterial - so it's safe to stop the antibiotics and let you go home. we'll continue to follow the culture, and if there are any surprise findings (highly unlikely) we'll let you know right away. likewise, if the headache worsens and you get a fever (also highly unlikely) we'd want you seen right away -take the ibuprofen up to every six hours as needed for the headache. we'd expect that you might need it pretty often the first few days, but then likely will need less and less. as an "arbitrary line" if you were still needing it four times a day pretty routinely by saturday, it wouldn't necessarily mean anything new is going wrong, but definitely would be a point at which things should be looked at again. take the ibuprofen with food so that it doesn't upset your stomach Current Hospital Diet Patient's current hospital diet: Regular Diet Discharge Diet Recommended Diet: Regular Diet Pending Studies Studies pending at discharge: yes List of pending studies: your spinal fluid culture will continue to be monitored in the micro lab. there is no growth to date, and usually the first 24hours are where the bulk of positive findings are noted. however, if there was any late growth we'd get in touch with you right away Medical Emergencies . Who to Call and When: Medical Emergencies: If at any time you feel your situation is an emergency, please call 911 immediately. . Non-Emergent Contact Non-Emergency issues call your: Primary Care Provider . . "Provider Documentation" section prepared by Dejon Benjamin. . VTE Core Measure Inpt VTE Proph given/why not?: SCD's
[2017-04-25 15:51] VITALS: BP 98/57; PULSE 66; TEMP 36.7; O2SAT 99
--- NOTE | 2017-04-25 16:32 | Discharge Summary ---
Discharge Summary Date of Service Apr 25, 2017. Discharge Summary Admission Date: Apr 24, 2017 at 16:09 Discharge Date: Apr 25, 2017 Discharge Disposition: Home Principal Diagnosis: viral meningitis Procedures: HEAD CT NONCONTRAST CT DOSE: 537.48 mGy.cm HISTORY: Headache. Evaluate for hemorrhage or pathology TECHNIQUE: Multiaxial CT images of the head were performed without the use of intravenous contrast. Automated exposure control was utilized for this study. A dose lowering technique was utilized adhering to the principles of ALARA. Comparison: None. Findings: Partially visualized small retention cyst within the left maxillary sinus. Remaining paranasal sinuses and mastoid air cells are clear. The calvarium and skull base are intact. The ventricles and sulci are within normal limits. There is no mass, hematoma, midline shift, or acute infarct. Impression: No acute intracranial abnormality. Electronically signed by: Lucho Longoria M.D. 04/24/2017 1:12 PM Dictated Date/Time: 04/24/2017 1:09 PM Item Value Date Time Lyme Disease IgG Antibody NEG 04/24/17 1230 Lyme Disease IgM Antibody NEG 04/24/17 1230 CSF Appearance CLEAR 04/24/17 1340 CSF Color COLORLESS 04/24/17 1340 CSF Xanthrochromic NO XANTHOCHROMIA 04/24/17 1340 CSF WBC 57 /uL *H 04/24/17 1340 CSF RBC 33 /uL 04/24/17 1340 CSF Cell Count Tube # 1 04/24/17 1340 CSF Mononuclear WBCs 19.0 % 04/24/17 1340 CSF Polynuclear WBCs 81.0 % 04/24/17 1340 CSF Glucose 58 mg/dl 04/24/17 1340 CSF Total Protein 34.6 mg/dl 04/24/17 1340 CSF WBC 38 /uL *H 04/24/17 1340 CSF RBC 4 /uL 04/24/17 1340 CSF Cell Count Tube # 4 04/24/17 1340 CSF Mononuclear WBCs 14.0 % 04/24/17 1340 CSF Polynuclear WBCs 86.0 % 04/24/17 1340 CSF Chemistry Tube # 2 04/24/17 1340 Last Resulted CBC 04/25/17 08:17 Red Blood Count 4.14, Mean Corpuscular Volume 88.2, Mean Corpuscular Hemoglobin 29.5, Mean Corpuscular Hemoglobin Concent 33.4, Mean Platelet Volume 9.3, Neutrophils (%) (Auto) 78.8, Lymphocytes (%) (Auto) 16.7, Monocytes (%) (Auto) 4.1, Eosinophils (%) (Auto) 0.0, Basophils (%) (Auto) 0.1, Neutrophils # (Auto) 9.04, Lymphocytes # (Auto) 1.91, Monocytes # (Auto) 0.47, Eosinophils # (Auto) 0.00, Basophils # (Auto) 0.01 Last Resulted BMP 04/25/17 08:17 CHEST ONE VIEW PORTABLE CLINICAL HISTORY: Chest pain. COMPARISON STUDY: No previous studies for comparison. FINDINGS: Lung volumes are normal. No pneumothorax or pleural effusion is present. Pulmonary vascularity is normal. Cardiomediastinal silhouette is normal. IMPRESSION: No acute cardiopulmonary findings. Electronically signed by: Kaushal Galvan M.D. 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 with picture so clearly consistent with viral meningitis, pt stable for discharge to home -outlined "red flag" s/s for return (fever, return of headache) and Rx'd 800mg ibuprofen to help w headache. stable for home Total Time Spent: Less than 30 minutes This includes examination of the patient, discharge planning, medication reconciliation, and communication with other providers. Discharge Instructions Please refer to the electronic Patient Visit Report (Discharge Instructions) for additional information. Additional Copies To [facility]
== END 2017-04-25 16:15 | disposition home or self-care (01) ==
LOC: C.EDB 12:07 → C.MS4W 16:09 → EDBEDREQ 16:20 → ENRESERV 17:11
PROVIDERS: ADMIT Internal Medicine; ATTEND Family Medicine
DX: A87.9 Viral meningitis, unspecified (principal)